=== PATIENT | female | born 1960 | race Two or more races ===

== ENCOUNTER 2022-10-12 18:31 | Inpatient (IN) | payer MEDICAID, OTHER ==
[~2022-10-12] VITALS: Ht 172.7 cm; Wt 74.1 kg
[2022-10-12 19:23] LABS: Basophils # (auto) 0 10 ^3/uL (0-0.2); Basophils % (auto) 0.3 % (0.0-2.0); Eosinophils # (auto) 0.3 10 ^3/uL (0-0.8); Eosinophils % (auto) 1.7 % (0.0-7.0); Hematocrit 26.6 % (36.0-46.0); Hemoglobin 8.8 g/dL (12.2-16.2); Lymphocytes # (auto) 2.4 10 ^3/uL (0.4-5.4); Lymphocytes % (auto) 14.9 % (10.0-50.0); Mean Corpuscular Hgb Conc. 33.1 g/dL (32.0-36.0); Mean Corpuscular Volume 84.6 fL (80.0-100.0); Monocytes # (auto) 1.2 10 ^3/uL (0-1.3); Monocytes % (auto) 7.3 % (0.0-12.0); Neutrophils # (auto) 12.1 10 ^3/uL (1.6-8.6); Neutrophils % (auto) 75.8 % (37.0-80.0); Red Blood Cells 3.15 10^6/uL (4.0-5.20); Red Cell Distribution Width 12.9 % (11.8-14.3)
[2022-10-12 19:40] LABS: Albumin 2.4 g/dL (3.4-5.0); Calcium 8.3 mg/dL (8.5-10.1); Potassium 3.5 mmol/L (3.5-5.1)
[2022-10-12 19:44] LABS: BUN/Creatinine Ratio 24.1 (10.0-20.0); Bilirubin, Total 0.4 mg/dL (0.2-1.0); Total Protein 6.8 g/dL (6.4-8.2)
[2022-10-12] MEDS ORDERED: ASPirin 325 MG TAB PO ONE (20:00)
[2022-10-12] MEDS ORDERED: NITROGLYCERIN 0.4 MG SL TAB SL PRN (20:45)
[2022-10-12] MEDS ORDERED: TEMAZEPAM 15 MG CAP PO PRN (20:45)
[2022-10-12] MEDS ORDERED: ACETAMINOPHEN 325 MG TAB PO PRN (20:45)
[2022-10-12] MEDS ORDERED: DEXTROSE (50%) 50ML SYRG IV PRN (20:45)
[2022-10-12] MEDS ORDERED: ONDANSETRON HCL 4 MG/2 ML VIAL IV PRN (20:45)
[2022-10-12] MEDS ORDERED: MORPHINE SULFATE INJ 2 MG/ml SYRG IV PRN (20:45)
[2022-10-12 22:39] LABS: Urine Bacteria FEW /hpf (None Seen); Urine Blood Negative /uL (Negative); Urine Hyaline Cast FEW /lpf (0 - 2); Urine Specific Gravity 1.017 (1.001-1.035); Urine WBC 21 /hpf (0 - 5)
[2022-10-12] MEDS: ACCU-CHEK COMFORT CURVE STRIP VI SCH (23:00)
[2022-10-12] MEDS: InsuLIN REG 1unit/0.01ml Soln (100units/ml) SC SCH (23:00)
[2022-10-13] MEDS: ATORVASTATIN 20 MG TAB PO SCH ×2 (00:16→22:18)
[2022-10-13 06:20] LABS: Albumin 2.1 g/dL (3.4-5.0); Calcium 8.6 mg/dL (8.5-10.1); Potassium 3.6 mmol/L (3.5-5.1)
[2022-10-13 06:26] LABS: BUN/Creatinine Ratio 31.3 (10.0-20.0); Bilirubin, Total 0.5 mg/dL (0.2-1.0)
[2022-10-13] MEDS: InsuLIN REG 1unit/0.01ml Soln (100units/ml) SC SCH ×4 (07:00→22:30)
[2022-10-13] MEDS: ACCU-CHEK COMFORT CURVE STRIP VI SCH ×4 (07:14→22:00)
[2022-10-13 07:23] LABS: Basophils # (auto) 0.1 10 ^3/uL (0-0.2); Basophils % (auto) 0.6 % (0.0-2.0); Eosinophils # (auto) 0.3 10 ^3/uL (0-0.8); Eosinophils % (auto) 2.3 % (0.0-7.0); Hematocrit 25.2 % (36.0-46.0); Hemoglobin 8.7 g/dL (12.2-16.2); Lymphocytes # (auto) 2.4 10 ^3/uL (0.4-5.4); Lymphocytes % (auto) 17.4 % (10.0-50.0); Mean Corpuscular Hemoglobin 29.3 pg (28.0-32.0); Mean Corpuscular Hgb Conc. 34.6 g/dL (32.0-36.0); Mean Corpuscular Volume 84.6 fL (80.0-100.0); Monocytes # (auto) 1.3 10 ^3/uL (0-1.3); Monocytes % (auto) 9.1 % (0.0-12.0); Neutrophils # (auto) 9.8 10 ^3/uL (1.6-8.6); Neutrophils % (auto) 70.6 % (37.0-80.0); Nucleated Red Blood Cells % 0.1 %; Red Blood Cells 2.98 10^6/uL (4.0-5.20); Red Cell Distribution Width 12.8 % (11.8-14.3); White Blood Cell 13.9 10^3/uL (4.4-10.8)
[2022-10-13] MEDS: cefTRIAXone 1GM/50ML D5W 50 ML IV SCH (09:21)
[2022-10-13] MEDS: PANTOPRAZOLE 40 MG TAB PO SCH (10:52)
[2022-10-13] MEDS: ENOXAPARIN SOD 30 MG/0.3 ML SYRINGE SC SCH (10:52)
[2022-10-13] MEDS: ASPirin 81 mg TAB PO SCH (10:53)
[2022-10-13] MEDS: LOSARTAN POTASSIUM 50 MG TAB PO SCH (10:53)
[2022-10-13] MEDS ORDERED: ACETAMINOPHEN 500 MG TAB PO PRN (12:30)
[2022-10-13] MEDS ORDERED: ONDANSETRON HCL 4 MG/2 ML VIAL IV PRN (12:30)
[2022-10-13] MEDS ORDERED: MORPHINE SULFATE INJ 2 MG/ml SYRG IV PRN (12:30)
[2022-10-13] MEDS: SOD CHL 0.45% 1,000 ML IV SCH (13:20)
[2022-10-13] MEDS: metroNIDAZOLE 500MG/100ML 100 ML IV SCH ×2 (14:14→22:18)
[2022-10-13 16:59] LABS: Cholesterol 77 mg/dL (< 200)
[2022-10-13 17:02] LABS: HDL Cholesterol 36 mg/dL (40-59); LDL Cholesterol 35 mg/dL (< 100); Triglycerides 54 mg/dL (< 150)
[2022-10-13 17:08] LABS: Folate (Folic Acid) 9.8 ng/mL (5.38-24)
[2022-10-13 23:09] VITALS: BP 131/55
[2022-10-14 05:00] VITALS: BP 101/58
[2022-10-14] MEDS: InsuLIN REG 1unit/0.01ml Soln (100units/ml) SC SCH ×4 (05:04→22:25)
[2022-10-14] MEDS: ACCU-CHEK COMFORT CURVE STRIP VI SCH ×4 (05:16→21:37)
[2022-10-14] MEDS: SOD CHL 0.45% 1,000 ML IV SCH ×2 (05:28→09:13)
[2022-10-14] MEDS: metroNIDAZOLE 500MG/100ML 100 ML IV SCH ×3 (05:28→21:46)
[2022-10-14 07:00] LABS: Albumin 1.9 g/dL (3.4-5.0); Calcium 8.4 mg/dL (8.5-10.1); Potassium 3.4 mmol/L (3.5-5.1)
[2022-10-14 07:05] LABS: BUN/Creatinine Ratio 26.7 (10.0-20.0); Bilirubin, Total 0.4 mg/dL (0.2-1.0); Total Protein 6.8 g/dL (6.4-8.2)
[2022-10-14 07:11] LABS: Basophils # (auto) 0.1 10 ^3/uL (0-0.2); Eosinophils # (auto) 0.4 10 ^3/uL (0-0.8); Hemoglobin 8.5 g/dL (12.2-16.2); Mean Corpuscular Hemoglobin 28.5 pg (28.0-32.0); Red Blood Cells 2.99 10^6/uL (4.0-5.20)
[2022-10-14 07:15] LABS: Basophils % (auto) 0.4 % (0.0-2.0); Eosinophils % (auto) 3.1 % (0.0-7.0); Hematocrit 25.2 % (36.0-46.0); Lymphocytes # (auto) 2.5 10 ^3/uL (0.4-5.4); Mean Corpuscular Hgb Conc. 33.8 g/dL (32.0-36.0); Mean Corpuscular Volume 84.3 fL (80.0-100.0); Monocytes % (auto) 7.7 % (0.0-12.0); Neutrophils # (auto) 9.3 10 ^3/uL (1.6-8.6); Neutrophils % (auto) 69.8 % (37.0-80.0); Red Cell Distribution Width 12.9 % (11.8-14.3); White Blood Cell 13.3 10^3/uL (4.4-10.8)
[2022-10-14 08:41] VITALS: BP 117/60
[2022-10-14] MEDS: cefTRIAXone 1GM/50ML D5W 50 ML IV SCH (09:09)
[2022-10-14] MEDS: PANTOPRAZOLE 40 MG TAB PO SCH (09:10)
[2022-10-14] MEDS: ASPirin 81 mg TAB PO SCH (09:10)
[2022-10-14] MEDS: LOSARTAN POTASSIUM 50 MG TAB PO SCH (09:10)
[2022-10-14] MEDS: ENOXAPARIN SOD 30 MG/0.3 ML SYRINGE SC SCH (09:11)
[2022-10-14] MEDS ORDERED: SOD CHL 0.9%/ KCL 40MEQ 1,000 ML IV ONE (10:45)
[2022-10-14 13:16] VITALS: BP 124/57
[2022-10-14 17:00] VITALS: BP 127/71
[2022-10-14 20:00] VITALS: BP 109/54
[2022-10-14] MEDS ORDERED: DOCUSATE SOD 100 MG CAP PO PRN (20:00)
[2022-10-14] MEDS: HYDROcodone-ACET 5/325MG TAB PO PRN (20:13)
[2022-10-14] MEDS: ATORVASTATIN 20 MG TAB PO SCH (21:37)
[2022-10-14 22:00] VITALS: BP 109/54
[2022-10-15] MEDS: HYDROcodone-ACET 5/325MG TAB PO PRN (04:18)
[2022-10-15 05:00] VITALS: BP 127/63
[2022-10-15] MEDS: metroNIDAZOLE 500MG/100ML 100 ML IV SCH (05:22)
[2022-10-15 05:56] LABS: Basophils # (auto) 0.1 10 ^3/uL (0-0.2); Basophils % (auto) 0.5 % (0.0-2.0); Eosinophils # (auto) 0.4 10 ^3/uL (0-0.8); Eosinophils % (auto) 2.9 % (0.0-7.0); Hematocrit 27.6 % (36.0-46.0); Hemoglobin 8.7 g/dL (12.2-16.2); Lymphocytes # (auto) 2.1 10 ^3/uL (0.4-5.4); Lymphocytes % (auto) 16.6 % (10.0-50.0); Mean Corpuscular Hemoglobin 27.6 pg (28.0-32.0); Mean Corpuscular Hgb Conc. 31.7 g/dL (32.0-36.0); Monocytes # (auto) 1.1 10 ^3/uL (0-1.3); Monocytes % (auto) 8.8 % (0.0-12.0); Neutrophils # (auto) 9.2 10 ^3/uL (1.6-8.6); Neutrophils % (auto) 71.2 % (37.0-80.0); Red Blood Cells 3.17 10^6/uL (4.0-5.20); Red Cell Distribution Width 12.5 % (11.8-14.3); White Blood Cell 12.9 10^3/uL (4.4-10.8)
[2022-10-15] MEDS: InsuLIN REG 1unit/0.01ml Soln (100units/ml) SC SCH ×4 (06:11→21:55)
[2022-10-15] MEDS: ACCU-CHEK COMFORT CURVE STRIP VI SCH ×4 (06:11→21:53)
[2022-10-15 06:19] LABS: Calcium 8.2 mg/dL (8.5-10.1); Potassium 3.9 mmol/L (3.5-5.1)
[2022-10-15 06:21] LABS: BUN/Creatinine Ratio 31.4 (10.0-20.0)
[2022-10-15] MEDS: ASPirin 81 mg TAB PO SCH (08:39)
[2022-10-15] MEDS: cefTRIAXone 1GM/50ML D5W 50 ML IV SCH (08:39)
[2022-10-15] MEDS: ENOXAPARIN SOD 30 MG/0.3 ML SYRINGE SC SCH (08:40)
[2022-10-15] MEDS: LOSARTAN POTASSIUM 50 MG TAB PO SCH (08:40)
[2022-10-15] MEDS: PANTOPRAZOLE 40 MG TAB PO SCH (08:40)
[2022-10-15 09:00] VITALS: BP 99/46
[2022-10-15] MEDS ORDERED: ASPirin 81 mg TAB PO SCH (10:00)
[2022-10-15] MEDS ORDERED: LACTULOSE 20Gm/30ML SOLN PO PRN (10:00)
[2022-10-15 13:00] VITALS: BP 142/60
[2022-10-15 17:02] VITALS: BP 125/66
[2022-10-15] MEDS: ATORVASTATIN 20 MG TAB PO SCH (21:45)
[2022-10-15 22:00] VITALS: BP 113/51
[2022-10-16] MEDS: HYDROcodone-ACET 5/325MG TAB PO PRN (04:05)
[2022-10-16 05:00] VITALS: BP 105/42
[2022-10-16] MEDS: ACCU-CHEK COMFORT CURVE STRIP VI SCH ×2 (06:36→11:34)
[2022-10-16] MEDS: InsuLIN REG 1unit/0.01ml Soln (100units/ml) SC SCH ×2 (06:40→11:59)
[2022-10-16] MEDS: PANTOPRAZOLE 40 MG TAB PO SCH (08:54)
[2022-10-16] MEDS: ENOXAPARIN SOD 30 MG/0.3 ML SYRINGE SC SCH (08:54)
[2022-10-16] MEDS: cefTRIAXone 1GM/50ML D5W 50 ML IV SCH (08:55)
[2022-10-16] MEDS: LOSARTAN POTASSIUM 50 MG TAB PO SCH (08:57)
[2022-10-16 09:00] VITALS: BP 102/56
[2022-10-16] MEDS ORDERED: ASPirin 81 mg TAB PO SCH (10:00)
[2022-10-16 13:00] VITALS: BP 119/60
[2022-10-16] MEDS ORDERED: HYDR-4902 PO (13:09)
[2022-10-16] MEDS ORDERED: CEFD300C2 PO (13:09)
== END 2022-10-16 15:15 | disposition home or self-care (01) | DRG 720 ==
LOC: ER 18:31 → TELE 20:47 → TELE-WESTW 10-13 21:45
PROVIDERS: ADMIT Nurse Practitioner; ATTEND Nurse Practitioner Acute Care
DX: A41.9 Sepsis, unspecified organism (principal); N17.0 Acute kidney failure with tubular necrosis; I21.A1 Myocardial infarction type 2; E11.21 Type 2 diabetes mellitus with diabetic nephropathy; E11.22 Type 2 diabetes mellitus with diabetic chronic kidney disease; N13.6 Pyonephrosis; I12.9 Hypertensive chronic kidney disease with stage 1 through stage 4 chronic kidney disease, or unspecified chronic kidney disease; N18.31 Chronic kidney disease, stage 3a; E78.5 Hyperlipidemia, unspecified; K21.9 Gastro-esophageal reflux disease without esophagitis; M79.10 Myalgia, unspecified site; Z20.822 Contact with and (suspected) exposure to COVID-19; K59.00 Constipation, unspecified; Z79.4 Long term (current) use of insulin; Z87.891 Personal history of nicotine dependence; Z90.49 Acquired absence of other specified parts of digestive tract; Z98.49 Cataract extraction status, unspecified eye
CPT/HCPCS: 36415; 71045; 74176; 80048; 80053; 80061; 81001; 82607; 82746; 82962; 83036; 83605; 84443; 84484; 85025; 86141; 87040; 87045; 87086; 87426; 87427; 87804; 93005; 93306; G0378; J0696; J1815; J3490